=== PATIENT | female | born 1960 | race Caucasian/White ===

== ENCOUNTER 2020-12-31 08:00 | Outpatient (CLI) | payer BC ==
--- NOTE | 2020-12-31 08:51 | XRAY Report ---
PROCEDURE: Hip w/Pelvis 2-3V RT INDICATIONS: RIGHT HIP JOINT PAIN TECHNIQUE: AP pelvis with lateral view(s) of the right hip(s). COMPARISON: None. FINDINGS: Bones: No fractures or dislocations. Pelvic ring appears intact. No suspicious bony lesions. Ther e are screws fixating the right iliac wing. The right hip has severe degenerative changes with loss o f the joint space, osteophytes, subchondral sclerosis. The left hip has mild degenerative changes. Soft tissues: The visualized bowel gas pattern is normal. No suspicious soft tissue calcifications. IMPRESSION: Severe osteoarthritis of the right hip. Reviewed by: Mauricio Molina on 12/31/2020 8:49 AM PDT Approved by: Mauricio Molina on 12/31/2020 8:49 AM PDT Station ID: [id number]
== END 2020-12-31 23:59 | disposition home or self-care (01) ==
LOC: DI.N 08:00
PROVIDERS: ATTEND Physician Assistant
DX: M25.551 Pain in right hip (principal); M16.11 Unilateral primary osteoarthritis, right hip

== ENCOUNTER 2021-01-14 13:27 | Outpatient (CLI) | payer BC ==
[2021-01-14] MEDS ORDERED: ROPIVACAINE 0.5% PF 20 ML AMPULE ONE (13:31)
[2021-01-14] MEDS ORDERED: TRIAMCINOLONE 40 MG/ML VIAL ONE (13:31)
[2021-01-14] MEDS ORDERED: BUFFERED LIDOCAINE 10 ML SYRINGE ONE (13:41)
[2021-01-14] MEDS ORDERED: BUFFERED LIDOCAINE 10 ML SYRINGE IU ONE (15:00)
[2021-01-14] MEDS ORDERED: iohexoL-240 10 ML VIAL IVP ONE (15:01)
[2021-01-14] MEDS ORDERED: TRIAMCINOLONE 40 MG/ML VIAL IM ONE (15:03)
[2021-01-14] MEDS ORDERED: ROPIVACAINE 0.5% PF 20 ML AMPULE IU ONE (16:00)
--- NOTE | 2021-01-14 16:40 | XRAY Report ---
PROCEDURE: Inj/Aspiration Major Joint INDICATIONS: ARTHRITIS RIGHT HIP CONTRAST: CONTRAST: omnipaque FLUORO TIME: FLUORO TIME: 13 sec and NUMBER IMAGES: 1 TECHNIQUE: The indications, alternatives, benefits, risks, and complications of the procedure were explained to the patient. Written informed consent was obtained and placed in the chart. The patient was placed in an appropriate position on the fluoroscopy table, and a site was chosen for percutaneous access un kuldeep fluoroscopic guidance. Local anesthetic was administered using a 1% lidocaine solution. A hypod ermic or spinal needle was then used to access the symptomatic joint. Intra-articular location of th e needle tip was confirmed by injecting a small amount of contrast, followed by steroid administratio n. The needle was then withdrawn, and a bandage applied to the puncture site. FINDINGS: Joint injected: Right hip joint. Medications injected: 1 mL of 40 mg/mL Kenalog and 3 mL 0.5% Ropivacaine mixture. Complications: None. IMPRESSION: Successful fluoroscopically guided administration of steroid and anaesthetic solution into the right hip joint. Reviewed by: Joseph Card MD on 01/14/2021 4:39 PM PDT Approved by: Joseph Card MD on 01/14/2021 4:39 PM PDT Station ID: [id number]
== END 2021-01-14 13:28 | disposition home or self-care (01) ==
LOC: DI 13:27
PROVIDERS: ATTEND Physician Assistant
DX: M13.851 Other specified arthritis, right hip (principal)
CPT/HCPCS: 20610; 77002; Q9966

== ENCOUNTER 2021-06-18 08:50 | Outpatient (CLI) | payer BC ==
--- NOTE | 2021-06-18 11:40 | CT Report ---
PROCEDURE: LOWER EXTREMITY WO - RT INDICATIONS: OSTEOARTHRITIS OF RIGHT HIP TECHNIQUE: Noncontrast 3-mm axial sections acquired from the distal tibial shaft to the talar dome, with coronal and sagittal reformats. For radiation dose reduction, the following was used: automated exposure c ontrol, adjustment of mA and/or kV according to patient size. COMPARISON: Right hip radiographs 12/31/2020 FINDINGS: Image quality: Excellent. Bones: Postsurgical changes are seen in the right iliac bone and right acetabulum with multiple meta llic screws. The hardware appears to be intact without signs of loosening. Severe joint space narrowi ng is seen in the superior and anterosuperior aspect of the right hip with subchondral cystic changes , subchondral sclerosis, and marginal osteophyte formation. Mild degenerative changes are seen in the left hip, right greater than left sacroiliac joints, and the pubic symphysis. Degenerative changes a lso noted in the included lower lumbar spine. Soft tissues: There is a small right hip effusion. Multiple ossified intra-articular loose bodies ar e seen, largest of which is located anterior to the femoral head measuring 18 x 15 x 9 mm. Fluid valencia ection extending along the anterior acetabulum into the pelvis may represent an iliopsoas bursal effu cisco or dissecting ganglion cysts. The musculature surrounding the hips is normal in bulk. The articu lar cartilages, labrum, ligaments, and tendons are not well evaluated with standard CT. A few diverti cula are seen in the colon. IMPRESSION: 1.Postsurgical changes in the right acetabulum and right iliac bone with intact hardware. 2.Severe degenerative changes in the right hip with full-thickness joint space narrowing, subchondral cystic changes, subchondral sclerosis, and marginal osteophyte formation. 3.Small right hip effusion with several ossified loose bodies. An iliopsoas bursal fluid collection o r ganglion cyst anterior to the right hip is seen extending superiorly into the pelvis. 4.Mild degenerative changes in the left hip, sacroiliac joints, pubic symphysis. Degenerative changes also noted in the included lower lumbar spine. Reviewed by: Sina Fountain MD on 06/18/2021 11:38 AM PDT Approved by: Sina Fountain MD on 06/18/2021 11:38 AM PDT Station ID: [id number]
== END 2021-06-18 08:51 | disposition home or self-care (01) ==
LOC: DI 08:50
PROVIDERS: ATTEND Orthopaedic Surgery
DX: M16.0 Bilateral primary osteoarthritis of hip (principal); M25.451 Effusion, right hip; M24.051 Loose body in right hip; M47.816 Spondylosis without myelopathy or radiculopathy, lumbar region

== ENCOUNTER 2021-06-19 16:46 | Outpatient (CLI) | payer BC ==
[2021-06-19 17:02] LABS: BASOPHILS % (AUTO) 0.3 %; EOSINOPHILS # (AUTO) 0.3 10^3/uL (0.0-0.7); EOSINOPHILS % (AUTO) 3.7 %; HCT - HEMATOCRIT 38.8 % (37.0-47.0); HGB - HEMOGLOBIN 13.2 g/dL (12.0-16.0); LYMPHOCYTES # (AUTO) 2.6 10^3/uL (1.5-3.5); LYMPHOCYTES % (AUTO) 36.3 %; MEAN CORPUSCULAR HEMOGLOBIN 32.2 pg (27.0-31.0); MEAN CORPUSCULAR VOLUME 94.6 fL (81.0-99.0); MEAN PLATELET VOLUME 8.9 fL (7.9-10.8); MONOCYTES # (AUTO) 0.5 10^3/uL (0.0-1.0); MONOCYTES % (AUTO) 7.4 %; NEUTROPHILS # (AUTO) 3.8 10^3/uL (1.5-6.6); PLT - PLATELET COUNT 316 10^3/uL (130-450); RED CELL DISTRIBUTION WIDTH 12.2 % (12.0-15.0); WHITE BLOOD COUNT 7.3 x10^3/uL (4.8-10.8)
[2021-06-19 17:13] LABS: ALBUMIN 4.7 g/dL (3.2-5.5); ALBUMIN/GLOBULIN RATIO 1.5 (1.0-2.2); BILIRUBIN,TOTAL 0.4 mg/dL (0.2-1.0); CREATININE 0.7 mg/dL (0.4-1.0); TOTAL PROTEIN 7.8 g/dL (6.7-8.2)
== END 2021-06-19 16:47 | disposition home or self-care (01) ==
LOC: LAB 16:46
PROVIDERS: ATTEND Registered Nurse
DX: E53.8 Deficiency of other specified B group vitamins (principal); Z13.0 Encounter for screening for diseases of the blood and blood-forming organs and certain disorders involving the immune mechanism; Z13.9 Encounter for screening, unspecified
CPT/HCPCS: 36415; 80053; 85025

== ENCOUNTER 2021-07-17 06:10 | Day surgery (SDC) | payer BC ==
[2021-07-17] MEDS ORDERED: ACETAMINOPHEN 500 MG TABLET PO ONE (06:28)
[2021-07-17] MEDS ORDERED: CELECOXIB 100 MG CAPSULE PO ONE (06:28)
[2021-07-17] MEDS ORDERED: LACTATED RINGERS 1,000 ML IV ONE ×2 (06:38→11:26)
--- NOTE | 2021-07-17 07:08 | ANESTHESIA ---
Pre-Anesthesia VS, & Labs - Diagnosis right hip osteo arthritis due to hip dysplasia - Procedure right hip arthroplasty Vital Signs: Temp Pulse Resp BP Pulse Ox 36.2 C L 72 16 143/93 H 94 07/17/21 06:39 07/17/21 06:39 07/17/21 06:39 07/17/21 06:39 07/17/21 06:39 Height: 5 ft 5 in Weight (kg): 96.6 kg Body Mass Index: 35.4 BMI Classification: Obese - NPO >8 hours - Is Patient ?: No Home Medications and Allergies Home Medications: Ambulatory Orders Aspirin [Aspirin EC] 81 mg PO DAILY 07/09/21 Cholecalciferol [Vitamin D3] 25 mcg PO DAILY 07/09/21 Lactobacillus Combination No.4 [Probiotic] 1 each PO DAILY 07/09/21 Levocetirizine Dihydrochloride [Xyzal] 5 mg PO DAILY 07/09/21 Levothyroxine [Synthroid] 25 mcg PO QDAC 07/09/21 Sertraline [Zoloft] 25 mg PO DAILY 07/09/21 Tramadol HCl 100 mg PO Q4HR PRN 07/09/21 Triamcinolone Acetonide [Nasacort] 2 spr NS DAILY 07/09/21 Aspirin [Aspirin EC] 81 mg PO DAILY 07/09/21 Cholecalciferol [Vitamin D3] 25 mcg PO DAILY 07/09/21 Lactobacillus Combination No.4 [Probiotic] 1 each PO DAILY 07/09/21 Levocetirizine Dihydrochloride [Xyzal] 5 mg PO DAILY 07/09/21 Levothyroxine [Synthroid] 25 mcg PO QDAC 07/09/21 Sertraline [Zoloft] 25 mg PO DAILY 07/09/21 Tramadol HCl 100 mg PO Q4HR PRN 07/09/21 Triamcinolone Acetonide [Nasacort] 2 spr NS DAILY 07/09/21 Allergies/Adverse Reactions: Allergies Allergy/AdvReac Type Severity Reaction Status Date / Time cefaclor [From Ceclor] Allergy Rash Verified 07/17/21 06:16 cephalexin [From Keflex] Allergy Rash Verified 07/17/21 06:16 ciprofloxacin [From Cipro] Allergy Rash Verified 07/17/21 06:16 erythromycin base Allergy Rash Verified 07/17/21 06:16 Penicillins Allergy Anaphylaxis Verified 07/17/21 06:16 sulfamethoxazole Allergy Rash Verified 07/17/21 06:16 [From ] trimethoprim [From ] Allergy Rash Verified 07/17/21 06:16 Anes History & Medical History - Anesthetic History Anesthesia Complications: reports: No previous complications - Medical History Cardiovascular: reports: None Pulmonary: reports: None Gastrointestinal: reports: GERD Urinary: reports: None Neuro: reports: None Musculoskeletal: reports: Osteoarthritis Endocrine/Autoimmune: reports: HyPOthyroidism Blood Disorders: reports: None Skin: reports: None Smoking Status: Never smoker Psychosocial: reports: Depression, Alcohol (wine 2-3 times per week) History of Cancer?: No - Surgical History Eyes Ears Nose Throat (EENT): reports: Tonsil/Adenoidectomy Orthopedic: reports: Other Exam General: Alert, Oriented x3, Cooperative, No acute distress Dental: WNL Mouth Openin Fingerbreadth Mallampati classification: II Thyromental Distance: 4-6 cm Mental/Cognitive Status: Alert/Oriented X3, Normal for patient Plan Anesthesia Type: Spinal, Fascia Iliaca Block (right side) Consent for Procedure(s) Verified and Reviewed: Yes Code Status: Attempt Resuscitation ASA classification: 2-Mild systemic disease Is this case an emergency?: No
[2021-07-17] MEDS ORDERED: BUPIVACAINE 0.25% PF 30 ML VIAL ONE (07:20)
[2021-07-17] MEDS ORDERED: VANCOMYCIN 1 GM VIAL ONE (07:20)
[2021-07-17] MEDS ORDERED: CEFAZOLIN SODIUM IN 0.9 % NACL 2 GM/50 ML BAG IV ONE (07:25)
[2021-07-17] MEDS ORDERED: MIDAZOLAM 2 MG/2 ML VIAL ONE ×2 (07:34→08:50)
[2021-07-17] MEDS ORDERED: BUPIVACAINE 0.5% PF 10 ML VIAL ONE (07:35)
[2021-07-17] MEDS ORDERED: PROPOFOL 500 MG/50 ML 500 MG/50 ML VIAL ONE ×3 (07:35→09:55)
[2021-07-17] MEDS ORDERED: fentaNYL 100 MCG/2 ML VIAL ONE (07:35)
[2021-07-17] MEDS ORDERED: DEXAMETHASONE 10 MG/ML VIAL ONE (07:35)
[2021-07-17] MEDS ORDERED: PHENYLEPHRINE 10 MG/ML VIAL ONE (07:35)
[2021-07-17] MEDS ORDERED: TRANEXAMIC ACID 1,000 MG/10 ML VIAL ONE (07:36)
[2021-07-17] MEDS ORDERED: ATROPINE ABBOJECT 1 MG/10 ML SYRINGE IVP PRN (09:09)
[2021-07-17] MEDS ORDERED: HYDROmorphone 0.5 MG/0.5 ML SYRINGE IVP PRN (09:09)
[2021-07-17] MEDS ORDERED: fentaNYL 100 MCG/2 ML VIAL IVP PRN ×2 (09:09→11:21)
[2021-07-17] MEDS ORDERED: ONDANSETRON 4 MG/2 ML VIAL IVP PRN ×2 (09:09→11:21)
[2021-07-17] MEDS ORDERED: NALOXONE 0.4 MG/ML VIAL IVP PRN (09:09)
[2021-07-17] MEDS ORDERED: MORPHINE 2 MG/ML CARPUJECT IVP PRN (09:09)
[2021-07-17] MEDS ORDERED: VANCOMYCIN 1 GM VIAL MC ONE (09:49)
[2021-07-17] MEDS ORDERED: ROPIVACAINE 0.5% PF 20 ML AMPULE ONE (09:49)
[2021-07-17] MEDS ORDERED: SODIUM CHLORIDE 0.9% 10 ML VIAL IVP ONE (09:50)
[2021-07-17] MEDS ORDERED: LACTATED RINGERS 1,000 ML IV SCH (10:00)
[2021-07-17] MEDS ORDERED: BUPIVACAINE 0.25% PF 30 ML VIAL SUBQ ONE ×2 (10:12)
--- NOTE | 2021-07-17 10:49 | OPERATIVE REPORT ---
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, previous he Procedure Performed: Right total hip replacement using [employer] press-fit total hip system: 54 mm R3 3-hole acetabular component, 42 mm inner diameter Oxinium dual mobility acetabular liner, single 6.5 mm x 30 mm acetabular screw, size 5 anthology high offset femoral component with +4 head and 28 x 42 mm dual mobility insert Post Op Diagnosis: Same as preoperative diagnosis - Procedure Note Primary Surgeon: Higinio Kuo MD Secondary Surgeon: Cyndee Bhakta PAC, Joaquin Noriega PAC Anesthesia Provider: Carmen Barrow CRNA Anesthesia Technique: Regional block, Spinal Estimated Blood Loss (mL): 700 Indications: 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 She had congenital hip dysplasia and underwent a right hip periacetabular osteotomy. She is done relatively well following her acetabular osteotomy but has developed progressive pain with weightbearing activities. She has pain with nearly all weightbearing activities that limits her ability to work, do activities of daily living and also to do activities that enhance her quality of life that she enjoys. She walks with a limp. She has less discomfort when sitting or at night. Her hip motion was reduced and very painful. Her gait was abnormal. Her x-rays showed advanced osteoarthritis of the right hip with periarticular osteophytes, acetabular protrusio, healed acetabular osteotomy with previous internal fixation. There is no joint space present to the right hip. She did have shortening of the right leg as well. Findings: At the time of surgery, there was complete loss of articular cartilage to the acetabulum. The acetabulum appeared to be well-healed from previous osteotomy of right hip. There was some scarring about the right hip and relatively large osteophytes about the acetabulum. There are also osteophytes about the femoral head which was deformed and had nearly complete loss of articular cartilage as well. There was eburnation of joint surface was present. Complications: None - Other Other Information/Narrative: After satisfactory spinal anesthesia had been achieved, the patient was placed in a lateral decubitus position with the right hip facing superiorly. She was secured in the lateral decubitus position using a pegboard with 2 post securing the torso and 2 posts securing the pelvis. The right hip and right lower extremity were prepped and draped in a sterile manner in the usual fashion. A timeout procedure was performed by the entire operating room team and all were in agreement. A longitudinal incision was made about the lateral right hip beginning at the vastus lateralis ridge of the proximal femur and extending it proximally approximately 3 fingerbreadths above the trochanter. The subcutaneous tissue and fascia adarsh were split in line with the incision. The anterior one third of the gluteus medius was incised at the tendinous junction. The gluteus medius was retracted medially. The hip capsule was exposed and was split in a T-shaped fashion. Part of the anterior hip capsule was excised. The femoral head was dislocated with flexion, adduction and external rotation. An osteotomy was done to the femoral neck using a osteotomy guide. Retractors were placed behind the femoral neck to protect the soft tissues from the oscillating saw. The proximal femur was retracted. 2 acetabular retractors were placed one anteriorly directly against bone to reduce any soft tissue impingement to femoral nerve. The second retractor was placed more posteriorly directly against bone and preventing any impingement against sciatic nerve. The acetabulum was prepared with a large curette. Medialization of the acetabulum was not performed. widening was done up to a 53 mm reamer the final reamers were placed in approximately 25 degrees anteversion and 40 degrees of abduction. A trial acetabular component was inserted, 53 mm and this fit well. A permanent 54 mm R3 acetabular 3-hole component was then impacted in 40 degrees of abduction and approximately 25 degrees of anteversion. This had good fixation to push pull and rotation. A single6.5 X 30 mm superior acetabular screw was inserted. The stability of the acetabular cup was very good. A Dual mobility acetabular liner was inserted into the cup. The femoral canal was opened with a box osteotome,Lateral canal reamer, starting reamer and then a short broach. Broaching was carried out to a #5. Calcar reaming was performed. Good fit and stability to the #5 stem was achieved. Trial reduction was performed. Hip motion was very good and the hip was stable to dislocation maneuvers. The trial components were removed. The #5 Accolade femoral stem was impacted and fully seated. The femoral head was impacted on the femoral trunnion. There was good stability to push pull and rotation. A 42 mm dual mobility +4 head was impacted on the trunnion. The hip was reduced, had good leg length tension and good stability with dislocation maneuvers. 3-minute lavage with dilute Betadine was performed. Vancomycin 2 g powder was inserted prior to the deep closure. The hip abductors were repaired at the tendinous junction with Arthrex fiber tack suture anchor. The fascia adarsh was closed with #1 Vicryl. The subcutaneous tissue was closed with 2-0 Vicryl. The skin was closed with a 3-0 Monocryl subcuticular closure and Dermabond. He tolerated the procedure well. A physician medical practice assistant was utilized during the procedure to provide retraction and protection of neurovascular structures as well as to facilitate dislocation and reduction of the hip joint.The patient was stable throughout the procedure but did have increased blood loss due to the complexity of the anatomy From previous hip dysplasia and previous osteotomy of acetabulumwhich made the procedure slightly longer and required more soft tissue dissection around the acetabulum.
[2021-07-17] MEDS ORDERED: PROPOFOL 200 MG/20 ML VIAL IVP ONE (11:07)
[2021-07-17] MEDS ORDERED: SODIUM CHLORIDE FLUSH 0.9% 10 ML SYRINGE IVP PRN (11:21)
[2021-07-17] MEDS ORDERED: DOCUSATE SODIUM 100 MG CAPSULE PO PRN (11:21)
--- NOTE | 2021-07-17 11:43 | ANESTHESIA POST OP EVALUATION ---
Anesthesia Post Eval - Post Anesthesia Eval Vitals: Last Vital Signs Temp 36 C L 07/17/21 11:29 Pulse 62 07/17/21 11:29 Resp 17 07/17/21 11:29 BP 107/73 07/17/21 11:29 Pulse Ox 100 07/17/21 11:29 CV Function Including HR & BP: Stable Pain Control: Satisfactory Nausea & Vomiting: Negative Mental Status: Baseline Respiratory Status: Airway Patent Hydration Status: Satisfactory Anesthesia Complications: None
[2021-07-17] MEDS ORDERED: NS W/20 MEQ KCL 1,000 ML IV SCH (13:00)
[2021-07-17] MEDS ORDERED: TRIAMCINOLONE ACETONIDE NS SCH (13:25)
--- NOTE | 2021-07-17 13:26 | XRAY Report ---
PROCEDURE: Pelvis 1 View INDICATIONS: POST OP TECHNIQUE: 3 view(s) of the pelvis acquired. COMPARISON: 12/31/2020 FINDINGS: Bones: Right total hip arthroplasty is in good position. Right iliac fixation screws also noted in go od position without evidence of hardware failure or loosening. Soft tissues: Visualized bowel gas pattern is normal. No suspicious soft tissue calcifications. IMPRESSION: Right total hip prosthesis in good position. Right iliac wing instrumentation, stable Reviewed by: Michael Youssef MD on 07/17/2021 12:25 PM AKDT Approved by: Michael Youssef MD on 07/17/2021 12:25 PM AKDT Station ID: [id number]
--- NOTE | 2021-07-17 13:28 | CONSULTATION NOTE ---
Referring Provider Name of Referring Provider:: Dr. Kuo Consult Date: 07/17/21 Chief Complaint - Chief Complaint Chief Complaint: right total hip replacement History of Present Illness - Admitted From Admitted From:: Medical floor - History Obtained From Records Reviewed: [facility] and surgeon's notes History obtained from: pt Exam Limitations: no - History of Present Illness HPI Comment/Other: This is a 61-years old female with a past medical history significantly of hypothyroidism, allergy, depression, Who had right total hip replacement on today. Surgeon Consult medical team for medical management. pt Is s/p of right total hip replacement on today. Patient report he feels comfortable, pain is at control, she has no complaints at this point. pt report Physical therapist will see patient later on this afternoon. History - Past Medical History Cardiovascular: reports: None Respiratory: reports: None Neuro: reports: None Endocrine/Autoimmune: reports: HyPOthyroidism GI: reports: GERD : reports: None HEENT: reports: Chronic vision loss Psych: reports: Depression, Anxiety Musculoskeletal: reports: Osteoarthritis Derm: reports: None MRSA Hx?: No - Past Surgical History Ortho: reports: Other HEENT: reports: Tonsil/Adenoidectomy Meds/Allgy - Home Medications Home Medications: Ambulatory Orders Medication Instructions Recorded Confirmed Aspirin [Aspirin EC] 81 mg PO DAILY 07/09/21 07/09/21 Cholecalciferol [Vitamin D3] 25 mcg PO DAILY 07/09/21 07/09/21 Lactobacillus Combination No.4 1 each PO DAILY 07/09/21 07/09/21 [Probiotic] Levocetirizine Dihydrochloride 5 mg PO DAILY 07/09/21 07/09/21 [Xyzal] Levothyroxine [Synthroid] 25 mcg PO QDAC 07/09/21 07/09/21 Sertraline [Zoloft] 25 mg PO DAILY 07/09/21 07/09/21 Tramadol HCl 100 mg PO Q4HR PRN 07/09/21 07/09/21 Triamcinolone Acetonide [Nasacort] 2 spr NS DAILY 07/09/21 07/09/21 - Allergies Allergies/Adverse Reactions: Allergies Allergy/AdvReac Type Severity Reaction Status Date / Time cefaclor [From Ceclor] Allergy Rash Verified 07/17/21 06:16 cephalexin [From Keflex] Allergy Rash Verified 07/17/21 06:16 ciprofloxacin [From Cipro] Allergy Rash Verified 07/17/21 06:16 erythromycin base Allergy Rash Verified 07/17/21 06:16 Penicillins Allergy Anaphylaxis Verified 07/17/21 06:16 sulfamethoxazole Allergy Rash Verified 07/17/21 06:16 [From Septra] trimethoprim [From Septra] Allergy Rash Verified 07/17/21 06:16 Review of Systems - Constitutional Constitutional: denies: Weakness - Eyes Eyes: denies: Pain - Ears, Nose & Throat Ears, Nose & Throat: denies: Ear pain - Cardiovascular Cariovascular: denies: Chest pain, Exertional dyspnea, Decr. exercise tolerance - Respiratory Respiratory: denies: Cough, Sputum production, SOB at rest, SOB with exertion - Gastrointestinal Gastrointestinal: denies: Abdominal pain, Nausea, Vomiting - Genitourinary Genitourinary: denies: Dysuria - Musculoskeletal Musculoskeletal: denies: Muscle pain, Muscle aches - Neurological Neurological: denies: General weakness, Focal weakness, Headache, Dizziness, Sei zures, Incoordination, Slurred speech Exam - Vital Signs Vital Signs: Vital Signs x48h Temp Pulse Pulse Resp BP BP Pulse Ox 07/17/21 12:51 36.4 C L 65 16 112/67 97 07/17/21 11:51 36.3 C L 66 16 101/74 95 07/17/21 11:50 36.0 C L 90 16 109/66 100 07/17/21 11:45 59 L 12 108/71 100 07/17/21 11:40 36.0 C L 58 L 10 L 102/79 99 07/17/21 11:29 36 C L 62 17 107/73 100 07/17/21 11:24 36.0 C L 60 12 104/61 100 07/17/21 06:39 36.2 C L 72 16 143/93 H 94 - Physical Exam General Appearance: positive: No acute distress, Alert. negative: Lethargic Eyes Bilateral: positive: Normal inspection, No lid inflammation ENT: positive: ENT inspection nml, No signs of dehydration. negative: Purulent nasal drainage Neck: positive: Nml inspection, Trachea midline. negative: Tracheal deviation Respiratory: positive: Chest non-tender, No respiratory distress. negative: Wheezes Cardiovascular: positive: Regular rate & rhythm. negative: Tachycardia, Bradycardia, Systolic murmur Peripheral Pulses: positive: 2+ Abdomen: positive: Non-tender, Nml bowel sounds, No distention. negative: Tenderness Back: positive: Nml inspection Skin: positive: Color nml, Warm, Dry. negative: Cyanosis Extremities: positive: Non-tender, Nml appearance, Other (pt report she slight numbness on right toes. pt is just s/p from right hip replacement) Neurologic/Psychiatric: positive: Oriented x3, Sensation nml, Mood/affect nml. negative: Weakness, Facial droop, Slurred/abnml speech Conclusion/Plan - Problem List (1) Hypothyroidism Conclusion/Plan: Patient's TSH is normal, we will resume patient home Synthroid. (2) Status post right hip replacement Conclusion/Plan: Patient is status post right hip placement on today. DVT prophylaxis per surgeon, gently IVF, Continue pain control, continue PT and OT. Patient is planning discharge on tomorrow by surgeon. slight elevated WBC is likely reactive. (3) Depression Conclusion/Plan: Patient has a history of depression, will resume home Zoloft (4) Allergy Conclusion/Plan: Patient has history of allergies, will resume home medications nasacort and levocetirizine - Lab Results Fish Bones: 07/17/21 13:54 07/17/21 13:54
[2021-07-17] MEDS: ACETAMINOPHEN 500 MG TABLET PO SCH ×3 (13:34→23:35)
[2021-07-17 14:00] LABS: BASOPHILS % (AUTO) 0.3 %; EOSINOPHILS % (AUTO) 0.1 %; HCT - HEMATOCRIT 34.6 % (37.0-47.0); HGB - HEMOGLOBIN 11.4 g/dL (12.0-16.0); LYMPHOCYTES # (AUTO) 0.8 10^3/uL (1.5-3.5); LYMPHOCYTES % (AUTO) 6.9 %; MEAN CORPUSCULAR HEMOGLOBIN 31.5 pg (27.0-31.0); MEAN CORPUSCULAR HGB CONC 32.9 g/dL (32.0-36.0); MEAN CORPUSCULAR VOLUME 95.6 fL (81.0-99.0); MEAN PLATELET VOLUME 8.8 fL (7.9-10.8); MONOCYTES # (AUTO) 0.3 10^3/uL (0.0-1.0); MONOCYTES % (AUTO) 2.8 %; NEUTROPHILS # (AUTO) 10.9 10^3/uL (1.5-6.6); NEUTROPHILS % (AUTO) 89.6 %; PLT - PLATELET COUNT 298 10^3/uL (130-450); RED BLOOD COUNT 3.62 10^6/uL (4.20-5.40); RED CELL DISTRIBUTION WIDTH 12.2 % (12.0-15.0); WHITE BLOOD COUNT 12.2 x10^3/uL (4.8-10.8)
[2021-07-17 14:10] LABS: CREATININE 0.6 mg/dL (0.4-1.0); POTASSIUM 4.1 mmol/L (3.5-5.0)
[2021-07-17] MEDS: oxyCODONE 5 MG TABLET PO PRN ×2 (15:41→20:56)
[2021-07-17] MEDS: PANTOPRAZOLE 40 MG TABLET PO SCH (15:42)
[2021-07-17] MEDS: NS W/20 MEQ KCL 1,000 ML IV SCH (15:43)
[2021-07-17] MEDS: ceFAZolin 2 GM in SODIUM CHLORIDE 0.9% 100ML 100 ML IV SCH ×2 (16:09→23:35)
[2021-07-17] MEDS: KETOROLAC 15 MG/ML VIAL IVP PRN ×2 (18:05→23:35)
[2021-07-17] MEDS: HYDROmorphone 0.5 MG/0.5 ML SYRINGE IVP PRN ×2 (18:06→21:31)
[2021-07-17] MEDS: SODIUM CHLORIDE FLUSH 0.9% 10 ML SYRINGE IVP SCH ×2 (18:08→21:31)
[2021-07-17 19:53] LABS: HCT - HEMATOCRIT 29.6 % (37.0-47.0); HGB - HEMOGLOBIN 9.9 g/dL (12.0-16.0)
[2021-07-17] MEDS: ASPIRIN EC 81 MG TABLET PO SCH (20:56)
[2021-07-17] MEDS: ethyl alcohoL 62% SWAB AMPULE NAS SCH (20:56)
[2021-07-17] MEDS ORDERED: CELECOXIB 100 MG CAPSULE PO SCH (21:00)
[2021-07-18] MEDS: HYDROmorphone 0.5 MG/0.5 ML SYRINGE IVP PRN (02:07)
[2021-07-18] MEDS: SODIUM CHLORIDE FLUSH 0.9% 10 ML SYRINGE IVP SCH ×2 (02:07→08:30)
[2021-07-18] MEDS: NS W/20 MEQ KCL 1,000 ML IV SCH (02:08)
[2021-07-18 04:09] LABS: BASOPHILS % (AUTO) 0.1 %; HCT - HEMATOCRIT 28.8 % (37.0-47.0); HGB - HEMOGLOBIN 9.4 g/dL (12.0-16.0); LYMPHOCYTES # (AUTO) 1.3 10^3/uL (1.5-3.5); LYMPHOCYTES % (AUTO) 14.3 %; MEAN CORPUSCULAR HEMOGLOBIN 31.1 pg (27.0-31.0); MEAN CORPUSCULAR HGB CONC 32.6 g/dL (32.0-36.0); MEAN CORPUSCULAR VOLUME 95.4 fL (81.0-99.0); MEAN PLATELET VOLUME 8.6 fL (7.9-10.8); MONOCYTES # (AUTO) 1.1 10^3/uL (0.0-1.0); MONOCYTES % (AUTO) 11.8 %; NEUTROPHILS # (AUTO) 6.7 10^3/uL (1.5-6.6); NEUTROPHILS % (AUTO) 73.4 %; PLT - PLATELET COUNT 265 10^3/uL (130-450); RED BLOOD COUNT 3.02 10^6/uL (4.20-5.40); RED CELL DISTRIBUTION WIDTH 12.2 % (12.0-15.0); WHITE BLOOD COUNT 9.1 x10^3/uL (4.8-10.8)
[2021-07-18 04:18] LABS: CALCIUM 8.6 mg/dL (8.5-10.3); CREATININE 0.6 mg/dL (0.4-1.0); POTASSIUM 4.2 mmol/L (3.5-5.0)
[2021-07-18] MEDS: PANTOPRAZOLE 40 MG TABLET PO SCH (06:06)
[2021-07-18] MEDS: ACETAMINOPHEN 500 MG TABLET PO SCH ×2 (06:06→11:33)
[2021-07-18] MEDS ORDERED: LEVOTHYROXINE 25 MCG TABLET PO SCH (07:00)
--- NOTE | 2021-07-18 07:53 | PROVIDER PROGRESS NOTE ---
Subjective - General Procedure Date: 07/17/21 Post Op Days: 1 Procedure Performed: Right total hip replacement - Review of Systems Wound/Incisions: positive: Dressing dry and intact General: positive: No symptoms - Other Other Information/Narrative: Patient is in good spirits this morning. Her pain is controlled. She denies chest pain, shortness of breath, nausea or vomiting this morning. She did have some nausea last evening. Objective - Patient Data Vital Signs: Vital Signs x48h Temp Pulse Resp BP Pulse Ox 07/18/21 04:00 36.6 C 75 16 96/49 L 96 07/18/21 00:00 36.1 C L 73 18 108/52 L 99 Weight: Weight 07/16/21 07/17/21 07/18/21 23:59 23:59 23:59 Weight (kg) 96.6 kg Intake & Output: Intake and Output Totals x24h 07/16/21 07/17/21 07/18/21 23:59 23:59 23:59 Intake Total 782.602 692.067 Output Total 2875 1400 Balance -2092.398 -707.933 - Lab Results Lab Results: 07/18/21 04:01 07/18/21 04:01 Other Lab Results: Lab Results x24hrs 07/18/21 07/18/21 07/17/21 Range/Units 04:01 04:01 19:47 WBC 9.1 (4.8-10.8) x10^3/uL RBC 3.02 L (4.20-5.40) 10^6/uL Hgb 9.4 L 9.9 L (12.0-16.0) g/dL Hct 28.8 L 29.6 L (37.0-47.0) % MCV 95.4 (81.0-99.0) fL MCH 31.1 H (27.0-31.0) pg MCHC 32.6 (32.0-36.0) g/dL RDW 12.2 (12.0-15.0) % Plt Count 265 (130-450) 10^3/uL MPV 8.6 (7.9-10.8) fL Neut # (Auto) 6.7 H (1.5-6.6) 10^3/uL Lymph # (Auto) 1.3 L (1.5-3.5) 10^3/uL Mcintosh # (Auto) 1.1 H (0.0-1.0) 10^3/uL Eos # (Auto) 0.0 (0.0-0.7) 10^3/uL Baso # (Auto) 0.0 (0.0-0.1) 10^3/uL Absolute Nucleated RBC 0.00 x10^3/uL Nucleated RBC % 0.0 /100WBC Sodium 136 (135-145) mmol/L Potassium 4.2 (3.5-5.0) mmol/L Chloride 104 (101-111) mmol/L Carbon Dioxide 24 (21-32) mmol/L Anion Gap 8.0 (6-13) BUN 14 (6-20) mg/dL Creatinine 0.6 (0.4-1.0) mg/dL Estimated GFR (MDRD) 102 (>89) Glucose 124 H (70-100) mg/dL Calcium 8.6 (8.5-10.3) mg/dL TSH (0.34-5.60) uIU/mL 07/17/21 07/17/21 07/17/21 Range/Units 13:54 13:54 13:54 WBC 12.2 H (4.8-10.8) x10^3/uL RBC 3.62 L (4.20-5.40) 10^6/uL Hgb 11.4 L (12.0-16.0) g/dL Hct 34.6 L (37.0-47.0) % MCV 95.6 (81.0-99.0) fL MCH 31.5 H (27.0-31.0) pg MCHC 32.9 (32.0-36.0) g/dL RDW 12.2 (12.0-15.0) % Plt Count 298 (130-450) 10^3/uL MPV 8.8 (7.9-10.8) fL Neut # (Auto) 10.9 H (1.5-6.6) 10^3/uL Lymph # (Auto) 0.8 L (1.5-3.5) 10^3/uL Mcintosh # (Auto) 0.3 (0.0-1.0) 10^3/uL Eos # (Auto) 0.0 (0.0-0.7) 10^3/uL Baso # (Auto) 0.0 (0.0-0.1) 10^3/uL Absolute Nucleated RBC 0.00 x10^3/uL Nucleated RBC % 0.0 /100WBC Sodium 137 (135-145) mmol/L Potassium 4.1 (3.5-5.0) mmol/L Chloride 100 L (101-111) mmol/L Carbon Dioxide 26 (21-32) mmol/L Anion Gap 11.0 (6-13) BUN 20 (6-20) mg/dL Creatinine 0.6 (0.4-1.0) mg/dL Estimated GFR (MDRD) 102 (>89) Glucose 126 H (70-100) mg/dL Calcium 9.0 (8.5-10.3) mg/dL TSH 0.80 (0.34-5.60) uIU/mL - Current Medications Current Medications: Current Medications Generic Name Dose Route Start Last Admin Trade Name Leonardoq PRN Reason Stop Dose Admin Acetaminophen 1,000 mg 07/17/21 12:00 07/18/21 06:06 Acetaminophen 500 Mg Tablet PO 1,000 mg Q6HR LIZZ Administration Alcohol 1 amp 07/17/21 21:00 07/17/21 20:56 Ethyl Alcohol 62% Swab Ampule NEO 1 amp BID LIZZ Administration Aspirin 81 mg 07/17/21 21:00 07/17/21 20:56 Aspirin Ec 81 Mg Tablet PO 81 mg BID LIZZ Administration Fentanyl 25 mcg 07/17/21 11:21 07/17/21 17:07 Fentanyl 100 Mcg/2 Ml Vial IVP 25 mcg Q2HR PRN Administration PAIN Hydromorphone HCl 0.5 mg 07/17/21 17:49 07/18/21 02:07 Hydromorphone 0.5 Mg/0.5 Ml Syringe IVP 0.5 mg Q4H PRN Administration PAIN Potassium Chloride/Sodium Chloride 1,000 mls @ 83.3 mls/hr 07/17/21 14:16 07/18/21 02:08 Normal Saline 0.9% W/20 Meq Kcl IV 07/18/21 14:16 83 mls/hr .Q12H1M LIZZ Administration Ketorolac Tromethamine 15 mg 07/17/21 17:49 07/17/21 23:35 Ketorolac 15 Mg/Ml Vial IVP 07/22/21 17:48 15 mg Q6HR PRN Administration PAIN Levothyroxine Sodium 25 mcg 07/18/21 07:00 07/18/21 06:10 Levothyroxine 25 Mcg Tablet PO 25 mcg QDAC LIZZ Administration Ondansetron HCl 4 mg 07/17/21 11:21 07/17/21 15:14 Ondansetron 4 Mg/2 Ml Vial IVP 4 mg Q6HR PRN Administration Nausea / Vomiting Oxycodone HCl 5 mg 07/17/21 11:21 07/17/21 20:56 Oxycodone 5 Mg Tablet PO 5 mg Q6HR PRN Administration PAIN Pantoprazole Sodium 40 mg 07/17/21 14:00 07/18/21 06:06 Pantoprazole 40 Mg Tablet PO 40 mg QDAC LIZZ Administration Sodium Chloride 10 ml 07/17/21 17:00 07/18/21 02:07 Sodium Chloride Flush 0.9% 10 Ml Syringe IVP 10 ml 0100,0900,1700 LIZZ Administration - Physical Exam Wound/Incisions: positive: Dressing dry and intact General Appearance: positive: No acute distress Neurologic/Psychiatric: positive: Oriented x3, Motor nml, Sensation nml Impression/Plan - Problem List Problem List: He is postop day 1, right total hip arthroplasty She is doing well and should be safe for discharge after physical therapy sessions. She has follow-up appointment on next Thursday, discharge pain medications have been done before surgery, continue with baby aspirin 81 mg twice daily for deep venous thrombosis prophylaxis, ambulation with walker weightbearing as tolerated right leg. She should avoid crossing her legs. She may shower with dressing in place. If she develops signs of bleeding, fever, chills, chest pain, shortness of breath, nausea or vomiting she should contact our office.
[2021-07-18] MEDS: ASPIRIN EC 81 MG TABLET PO SCH (08:28)
[2021-07-18] MEDS: ethyl alcohoL 62% SWAB AMPULE NAS SCH (08:30)
[2021-07-18] MEDS ORDERED: LORATADINE 10 MG TABLET PO SCH (09:00)
[2021-07-18] MEDS ORDERED: FLUTICASONE NASAL SPRAY NAS SCH (09:00)
[2021-07-18] MEDS ORDERED: LACTOBACILLUS RHAMNOSUS GG CAPSULE PO SCH (09:00)
[2021-07-18] MEDS ORDERED: SERTRALINE 25 MG TABLET PO SCH (09:00)
[2021-07-18] MEDS ORDERED: CHOLECALCIFEROL 25 MCG TABLET PO SCH (09:00)
[2021-07-18] MEDS ORDERED: SODIUM CHLORIDE 0.9% 1,000 ML IV SCH (10:00)
[2021-07-18] MEDS: KETOROLAC 15 MG/ML VIAL IVP PRN (11:33)
[2021-07-18 12:05] VITALS: BP 108/57
[2021-07-18] MEDS: oxyCODONE 5 MG TABLET PO PRN (13:40)
== END 2021-07-18 14:36 | disposition home or self-care (01) ==
LOC: SDS 06:10 → MS3 12:13 → SDS 07-18 14:36
PROVIDERS: ATTEND Orthopaedic Surgery
DX: M16.31 Unilateral osteoarthritis resulting from hip dysplasia, right hip (principal); E66.9 Obesity, unspecified; Z68.35 Body mass index [BMI] 35.0-35.9, adult; E03.9 Hypothyroidism, unspecified; F32.A Depression, unspecified; F41.9 Anxiety disorder, unspecified; Z88.0 Allergy status to penicillin; Z88.8 Allergy status to other drugs, medicaments and biological substances
CPT/HCPCS: 27130; 36415; 72170; 80048; 84443; 85014; 85018; 85025; 97116; 97161; 97165; 97530; A9270; C1713; J0690; J1170; J3370; J7120

== ENCOUNTER 2021-08-29 08:27 | Outpatient (CLI) | payer BC ==
--- NOTE | 2021-08-29 14:19 | XRAY Report ---
PROCEDURE: Hip 2 View RT INDICATIONS: RIGHT ROGELIO TECHNIQUE: 2 views of the hip were acquired. COMPARISON: Single view the pelvis dated 07/17/2021 FINDINGS: Bones: Right hip arthroplasty and ORIF of the right iliac is unchanged from the prior study. No suspi cious bony lesions. Soft tissues: No suspicious soft tissue calcifications or masses. IMPRESSION: Stable postoperative change. Reviewed by: Carlotta Villalobos MD on 08/29/2021 2:18 PM PDT Approved by: Carlotta Villalobos MD on 08/29/2021 2:18 PM PDT Station ID: [id number]
== END 2021-08-29 23:59 | disposition home or self-care (01) ==
LOC: DI.WOS 08:27
PROVIDERS: ATTEND Orthopaedic Surgery
DX: Z96.641 Presence of right artificial hip joint (principal)

== ENCOUNTER 2022-05-28 13:05 | Outpatient (CLI) | payer BC ==
--- NOTE | 2022-05-29 09:10 | Mammography Report ---
BILATERAL DIGITAL SCREENING MAMMOGRAM 3D/2D: 05/28/2022 CLINICAL: Routine screening. Comparison is made to exam dated: 02/28/2020 mammogram - [facility]. Both breasts are almost entirely fatty (category a/<25% glandular tissue). There are benign masses in both breasts. No significant masses, calcifications, or other findings are seen in either breast. There has been no significant interval change. IMPRESSION: BENIGN There is no mammographic evidence of malignancy. A 1 year screening mammogram is recommended. Based on the Tyrer Cuzick model (a risk assessment model) the patients lifetime risk is 5.5% and her 10 year risk is 2.3%. According to the ACR, ACS, and NCCN guidelines, an annual breast MRI exam cheng g with mammogram is recommended if the patients lifetime risk is 20% or greater. This exam was interpreted at Station ID: [id number]. NOTE: For mammograms, a report in lay terms will be sent to the patient. Approximately 15% of breast malignancies will not be visualized mammographically. In the management of a palpable breast mass, a negative mammogram must not discourage biopsy of a clinically suspicious lesion. Electronically Signed By: Ced travis/corbin:05/28/2022 15:17:57 letter sent: No_Letter ACR BI-RADS Category 2: Benign Finding(s) 3342F PARENCHYMAL PATTERN: (F) - The breast(s) demonstrate(s) diffuse fatty replacement. BI-RADS CATEGORY: (2) - 2 RECOMMENDATION: (ANNUAL) - Recommend routine annual screening mammography. [id number] 1 year screening LATERALITY: (B)
== END 2022-05-28 13:06 | disposition home or self-care (01) ==
LOC: DI.S 13:05
PROVIDERS: ATTEND Registered Nurse
DX: Z12.31 Encounter for screening mammogram for malignant neoplasm of breast (principal)

== ENCOUNTER 2023-04-08 08:00 | Outpatient (CLI) | payer BC ==
--- NOTE | 2023-04-08 19:06 | XRAY Report ---
PROCEDURE: Chest 2V INDICATIONS: SHORTNESS OF BREATH TECHNIQUE: 2 views of the chest were acquired. COMPARISON: None. FINDINGS: Surgical changes and devices: None. Lungs and pleura: No pleural effusions or pneumothorax. Lungs are clear. Moderate to large hiatal hernia. Mediastinum: Mediastinal contours appear normal. Heart size is normal. Bones and chest wall: No suspicious bony lesions. Overlying soft tissues appear unremarkable. IMPRESSION: No acute cardiopulmonary process. Moderate to large hiatal hernia. Reviewed by: Sina Fountain MD on 04/08/2023 7:04 PM PST Approved by: Sina Fountain MD on 04/08/2023 7:04 PM [facility] Station ID: [id number]
== END 2023-04-08 23:59 | disposition home or self-care (01) ==
LOC: DI.S 08:00
PROVIDERS: ATTEND Physician Assistant Medical
DX: R06.02 Shortness of breath (principal); K44.9 Diaphragmatic hernia without obstruction or gangrene

== ENCOUNTER 2023-04-10 08:01 | Outpatient (CLI) | payer BC ==
[2023-04-10 14:22] LABS: BASOPHILS % (AUTO) 0.8 %; EOSINOPHILS # (AUTO) 0.3 10^3/uL (0.0-0.7); EOSINOPHILS % (AUTO) 6.1 %; HCT - HEMATOCRIT 27.3 % (37.0-47.0); HGB - HEMOGLOBIN 7.8 g/dL (12.0-16.0); LYMPHOCYTES % (AUTO) 38.2 %; MEAN CORPUSCULAR HEMOGLOBIN 23.6 pg (27.0-31.0); MEAN CORPUSCULAR HGB CONC 28.6 g/dL (32.0-36.0); MEAN CORPUSCULAR VOLUME 82.7 fL (81.0-99.0); MEAN PLATELET VOLUME 8.8 fL (7.9-10.8); MONOCYTES # (AUTO) 0.6 10^3/uL (0.0-1.0); MONOCYTES % (AUTO) 11.4 %; NEUTROPHILS # (AUTO) 2.2 10^3/uL (1.5-6.6); NEUTROPHILS % (AUTO) 43.3 %; PLT - PLATELET COUNT 464 10^3/uL (130-450); RED CELL DISTRIBUTION WIDTH 15.5 % (12.0-15.0); SLIDE REVIEW? Indicated; WHITE BLOOD COUNT 5.1 x10^3/uL (4.8-10.8)
[2023-04-10 14:37] LABS: PLATELET ESTIMATE, MANUAL INCREASED (>450,000) (NORMAL); PLATELET MORPHOLOGY NORMAL APPEARANCE (NORMAL); RBC MORPHOLOGY (MULTIPLE) 2+ HYPOCHROMASIA (NORMAL)
[2023-04-10 16:07] LABS: ALBUMIN/GLOBULIN RATIO 1.5 (1.0-2.2); ALKALINE PHOSPHATASE 71 IU/L (42-121); ALT ALANINE AMINOTRANSFERASE 15 IU/L (10-60); AST ASPARTATE AMINOTRANSFERASE 15 IU/L (10-42); BILIRUBIN,TOTAL 0.2 mg/dL (0.2-1.0); BUN - BLOOD UREA NITROGEN 19 mg/dL (6-20); CALCIUM 9.3 mg/dL (8.5-10.3); CARBON DIOXIDE - CO2 27 mmol/L (21-32); CHLORIDE 107 mmol/L (101-111); CHOL/HDL RATIO 3.6 (<4.4); CHOLESTEROL 193 mg/dL; CREATININE 0.7 mg/dL (0.6-1.3); GFR - MDRD 85 (>89); GLUCOSE 93 mg/dL (74-104); HDL CHOLESTEROL 54 mg/dL; LDL CHOLESTEROL,CALCULATED 122 mg/dL; LDL/HDL RATIO 2.3 (<4.4); POTASSIUM 4.1 mmol/L (3.5-4.5); SODIUM 140 mmol/L (135-145); TOTAL PROTEIN 6.7 g/dL (6.4-8.9); TRIGLYCERIDES 83 mg/dL (48-352); VLDL CHOLESTEROL 17 mg/dL
== END 2023-04-10 08:02 | disposition home or self-care (01) ==
LOC: LAB.S 08:01
PROVIDERS: ATTEND Registered Nurse
DX: Z13.220 Encounter for screening for lipoid disorders (principal); Z79.899 Other long term (current) drug therapy; Z13.29 Encounter for screening for other suspected endocrine disorder
CPT/HCPCS: 36415; 80053; 80061; 83721; 84443; 85025

== ENCOUNTER 2023-04-11 11:32 | Emergency (ER) | payer BC ==
[2023-04-11 12:01] VITALS: O2SAT 99
[2023-04-11 13:34] LABS: BASOPHILS % (AUTO) 0.4 %; EOSINOPHILS # (AUTO) 0.2 10^3/uL (0.0-0.7); EOSINOPHILS % (AUTO) 3.5 %; HCT - HEMATOCRIT 28.3 % (37.0-47.0); HGB - HEMOGLOBIN 8.2 g/dL (12.0-16.0); LYMPHOCYTES # (AUTO) 1.9 10^3/uL (1.5-3.5); LYMPHOCYTES % (AUTO) 37.1 %; MEAN CORPUSCULAR HEMOGLOBIN 23.6 pg (27.0-31.0); MEAN CORPUSCULAR VOLUME 81.6 fL (81.0-99.0); MEAN PLATELET VOLUME 8.1 fL (7.9-10.8); MONOCYTES # (AUTO) 0.4 10^3/uL (0.0-1.0); MONOCYTES % (AUTO) 8.6 %; NEUTROPHILS # (AUTO) 2.6 10^3/uL (1.5-6.6); NEUTROPHILS % (AUTO) 50.2 %; PLT - PLATELET COUNT 436 10^3/uL (130-450); RED BLOOD COUNT 3.47 10^6/uL (4.20-5.40); RED CELL DISTRIBUTION WIDTH 15.2 % (12.0-15.0); WHITE BLOOD COUNT 5.1 x10^3/uL (4.8-10.8)
--- NOTE | 2023-04-11 13:46 | XRAY Report ---
PROCEDURE: Chest 1V INDICATIONS: chest pain TECHNIQUE: One view of the chest was acquired. COMPARISON: 04/08/2023 FINDINGS: Surgical changes and devices: None. Lungs and pleura: No pleural effusions or pneumothorax. Lungs are clear. Mediastinum: Mediastinal contours appear normal. Heart size is normal. A moderate to large hiatal hernia is again seen. Bones and chest wall: No suspicious bony lesions. Overlying soft tissues appear unremarkable. IMPRESSION: No acute cardiopulmonary process. Additional findings: Moderate to large hiatal hernia Reviewed by: Arjun Dutton MD on 04/11/2023 12:44 PM [facility] Approved by: Arjun Dutton MD on 04/11/2023 12:44 PM [facility] Station ID: [id number]
[2023-04-11 13:53] LABS: ALBUMIN 4.3 g/dL (3.2-5.5); ALBUMIN/GLOBULIN RATIO 1.4 (1.0-2.2); BILIRUBIN,TOTAL 0.2 mg/dL (0.2-1.0); CALCIUM 9.4 mg/dL (8.5-10.3); CREATININE 0.7 mg/dL (0.6-1.3); POTASSIUM 3.9 mmol/L (3.5-4.5); TOTAL PROTEIN 7.3 g/dL (6.4-8.9)
[2023-04-11 14:00] LABS: TROPONIN I HIGH SENSITIVITY 4.4 ng/L (2.3-14.8)
[2023-04-11 14:10] LABS: THYROID STIMULATING HORMONE 2.68 uIU/mL (0.34-5.60)
--- NOTE | 2023-04-11 16:24 | ED Physician Documentation ---
History of Present Illness - Stated complaint Stated Complaint: SENT BY [facility] - Chief complaint Chief Complaint: Resp - History obtained from History obtained from: Patient - Additonal information Additional information: Patient is a 63-year-old female presenting for evaluation of shortness of breath that she has been noting during exertion for the past several months. Patient works at the [employer] and states that she notices this when walking from employee parking to the hospital. She denies fever, cough or congestion. She denies chest pain. She reports feeling slightly worse with her shortness of breath this past week. She went to her PCP who directed her to the walk-in clinic and had outpatient labs and testing done on Thursday. She looked at her old labs today and noted that her hemoglobin was low in the 7 range and then was notified by the walk-in clinic that she should go to the emergency department for evaluation. She has noted darker colored stools but states they have not been black or with alice blood. She takes aspirin daily for history of varicose veins. She has never had a colonoscopy but has had 2 Cologuard test that have been unremarkable.She denies recent travel or immobilization. No history of PE or DVT. No abdominal symptoms. No nausea, vomiting. States stools today looked normal colored. Review of Systems Constitutional: denies: Fever Cardiac: denies: Chest pain / pressure Respiratory: reports: Dyspnea. denies: Cough GI: denies: Abdominal Pain, Vomiting Musculoskeletal: denies: Back pain, Extremity swelling Neurologic: denies: Headache PD PAST MEDICAL HISTORY - Past Medical History Past Medical History: Yes Cardiovascular: None Respiratory: None Neuro: None Endocrine/Autoimmune: HyPOthyroidism GI: GERD : None HEENT: Chronic vision loss Psych: Depression, Anxiety Musculoskeletal: Osteoarthritis Derm: None - Past Surgical History Past Surgical History: Yes Ortho: Other HEENT: Tonsil/Adenoidectomy - Present Medications Home Medications: Ambulatory Orders Medication Instructions Recorded Confirmed Aspirin [Aspirin EC] 81 mg PO DAILY 07/09/21 07/09/21 Cholecalciferol [Vitamin D3] 25 mcg PO DAILY 07/09/21 07/09/21 Lactobacillus Combination No.4 1 each PO DAILY 07/09/21 07/09/21 [Probiotic] Levocetirizine Dihydrochloride 5 mg PO DAILY 07/09/21 07/09/21 [Xyzal] Levothyroxine [Synthroid] 25 mcg PO QDAC 07/09/21 07/09/21 Sertraline [Zoloft] 25 mg PO DAILY 07/09/21 07/09/21 Tramadol HCl 100 mg PO Q4HR PRN 07/09/21 07/09/21 Triamcinolone Acetonide [Nasacort] 2 spr NS DAILY 07/09/21 07/09/21 - Allergies Allergies/Adverse Reactions: Allergies Allergy/AdvReac Type Severity Reaction Status Date / Time cefaclor [From Ceclor] Allergy Rash Verified 04/11/23 11:53 cephalexin [From Keflex] Allergy Rash Verified 04/11/23 11:53 ciprofloxacin [From Cipro] Allergy Rash Verified 04/11/23 11:53 erythromycin base Allergy Rash Verified 04/11/23 11:53 Penicillins Allergy Anaphylaxis Verified 04/11/23 11:53 sulfamethoxazole Allergy Rash Verified 04/11/23 11:53 [From Septra] trimethoprim [From Septra] Allergy Rash Verified 04/11/23 11:53 - Social History Does the pt smoke?: No Smoking Status: Never smoker Does the pt drink ETOH?: Yes Does the pt have substance abuse?: No - Immunizations Immunizations are current?: Yes PD ED PE NORMAL - General General: Alert and oriented X 3, No acute distress, Well developed/nourished - HEENT HEENT: Atraumatic, Moist mucous membranes, Pharynx benign - Neck Neck: Supple, no meningeal sign - Cardiac Cardiac: RRR, Strong equal pulses - Respiratory Respiratory: No respiratory distress, Clear bilaterally - Abdomen Abdomen: Normal bowel sounds, Soft, Non tender, Non distended - Rectal Rectal: Other (Chaperoned by Trina, no masses, normal colored stool, sent for Hemoccult testing) - Derm Derm: Warm and dry - Extremities Extremities: No edema, No calf tenderness / cord - Neuro Neuro: Normal speech Results - Vitals Vitals: Vital Signs - 24 hr 04/11/23 04/11/23 04/11/23 11:46 15:53 16:46 Temperature 36.0 C L Heart Rate 80 64 68 Respiratory 16 18 17 Rate Blood Pressure 139/72 H 126/76 139/75 H O2 Saturation 99 96 99 Oxygen O2 Source Room air - EKG (time done) 1456 EKG releavant findings:: EKG personally interpreted by author of this note. Relevant findings are: Rate 68, normal sinus rhythm, no STEMI, no ST depressions - Labs Labs: Microbiology 04/11/23 15:10 Occult Blood - Final Stool Laboratory Tests 04/11/23 04/11/23 04/11/23 13:29 13:29 13:29 WBC 5.1 RBC 3.47 L Hgb 8.2 L Hct 28.3 L MCV 81.6 MCH 23.6 L MCHC 29.0 L RDW 15.2 H Plt Count 436 MPV 8.1 Neut # (Auto) 2.6 Lymph # (Auto) 1.9 Scurry # (Auto) 0.4 Eos # (Auto) 0.2 Baso # (Auto) 0.0 Absolute Nucleated RBC 0.00 Nucleated RBC % 0.0 D-Dimer Sodium 139 Potassium 3.9 Chloride 104 Carbon Dioxide 28 Anion Gap 7.0 BUN 18 Creatinine 0.7 Estimated GFR (MDRD) 85 L Glucose 116 H Calcium 9.4 Magnesium 2.0 Total Bilirubin 0.2 AST 15 ALT 17 Alkaline Phosphatase 73 Troponin I High Sens 4.4 B-Natriuretic Peptide Total Protein 7.3 Albumin 4.3 Globulin 3.0 Albumin/Globulin Ratio 1.4 Lipase 35 TSH 2.68 04/11/23 04/11/23 13:29 15:36 WBC RBC Hgb Hct MCV MCH MCHC RDW Plt Count MPV Neut # (Auto) Lymph # (Auto) Scurry # (Auto) Eos # (Auto) Baso # (Auto) Absolute Nucleated RBC Nucleated RBC % D-Dimer 206.0 Sodium Potassium Chloride Carbon Dioxide Anion Gap BUN Creatinine Estimated GFR (MDRD) Glucose Calcium Magnesium Total Bilirubin AST ALT Alkaline Phosphatase Troponin I High Sens B-Natriuretic Peptide 72 Total Protein Albumin Globulin Albumin/Globulin Ratio Lipase TSH PD Medical Decision Making - ED course Complexity details: reviewed results, re-evaluated patient, d/w patient ED course: Patient is a 63-year-old female presenting for evaluation of shortness of breath that has been ongoing for the past months that she has been noting with exertion. Here vital signs are stable. EKG is nonischemic. No chest pain. Labs including CBC, chemistries, troponin, BNP were obtained and reviewed. She is anemic with a hemoglobin of 8.2. On labs earlier this week her hemoglobin was 7.8 so today it is slightly improved. On review of past labs that she was noted to be anemic in July 2021 with hemoglobins in the 9 range. Although she reports having dark-colored stool she says they have not been black or bloody and Hemoccult testing today is negative but with again normal colored stools on exam. Therefore I do not think she is having an acute GI bleed warranting an emergent colonoscopy. Do not think she needs an emergent blood transfusion given her hemoglobin above 8 today. Her high-sensitivity troponin is negative for so does not appear to have cardiac ischemia as the cause of her symptoms. I also obtained a D-dimer which was in the normal range and she does not have any known risk factors for PE or DVT. I did review her chest x-ray which shows a hiatal hernia and reviewed this with the patient. Patient understands the need for close follow-up with both a PCP as well as general surgery in regards to her hiatal hernia as well as her anemia as she may need a colonoscopy. Patient symptoms have been ongoing for some time and at this time I do not see signs of an emergent condition warranting admission to the hospital but again patient is aware she needs further testing. Patient counseled on concerning symptoms to return for. Departure - Departure Disposition: Home, Self Care Clinical Impression: SOB (shortness of breath), Anemia, Hiatal hernia Condition: Stable Instructions: ED Dyspnea Shortness of Breath Follow-Up: [facility] [Provider Group] Comments: Mary Jane your testing today shows that you are anemic. You are also noted to be anemic in 2021 and your hemoglobin today is slightly better than it was a few days ago with your outpatient labs. On your exam today I also do not see signs of any rectal bleeding and your stool was negative for microscopic blood. However I do think you need more testing to determine the cause for your anemia as well as your shortness of breath. Your chest x-ray does show that you have a hiatal hernia. Although you have had the Cologuard test in the past you may also need a colonoscopy. I would recommend close follow-up with one of our general surgeons to discuss both your hiatal hernia as well as your anemia. You should also have close follow-up with your primary care provider regarding your anemia and your shortness of breath. You may need further testing such as an echocardiogram or a stress test to evaluate your heart. At this time your cardiac marker is negative and again I do not see signs of a heart attack. Please reach out to your primary care doctor on Thursday for close follow-up. If at anytime you feel that you are having worsening symptoms or certainly any new symptoms such as chest pain then please return to the emergency department. Forms: PCP List Discharge Date/Time: 04/11/23 16:46
[2023-04-11 16:49] VITALS: BP 139/75
== END 2023-04-11 16:46 | disposition home or self-care (01) ==
LOC: ED 11:32
DX: K44.9 Diaphragmatic hernia without obstruction or gangrene (principal); D64.9 Anemia, unspecified; R06.02 Shortness of breath
CPT/HCPCS: 36415; 80053; 82272; 83690; 83735; 83880; 84443; 84484; 85025; 85379; 99283; 99284

== ENCOUNTER 2023-04-16 12:35 | Outpatient (CLI) | payer BC ==
[2023-04-16 12:58] LABS: ABSOLUTE RETICS # AUTO 0.076 10^6/uL (0.020-0.110); RED BLOOD COUNT 3.73 10^6/uL (4.20-5.40); RETICULOCYTE COUNT % (AUTO) 2.03 % (0.5-2.3)
[2023-04-16 13:36] LABS: FERRITIN 3.7 ng/mL (11.0-306.8)
[2023-04-16 17:00] LABS: BILIRUBIN,URINE NEGATIVE (NEGATIVE); GLUCOSE, URINE (UA) NEGATIVE (NEGATIVE); KETONES,URINE (UA) NEGATIVE (NEGATIVE); LEUKOCYTE ESTERASE, URINE SMALL (NEGATIVE); NITRITE,URINE NEGATIVE (NEGATIVE); OCCULT BLOOD,URINE NEGATIVE (NEGATIVE); PH,URINE 5.5 PH (5.0-7.5); PROTEIN,URINE NEGATIVE (NEGATIVE); UROBILINOGEN,URINE 0.2 (NORMAL) E.U./dL (NORMAL)
[2023-04-16 17:48] LABS: BACTERIA,URINE Many /HPF (None Seen); CLARITY,URINE CLEAR (CLEAR); RBC,URINE 0-5 /HPF (0-5); SQUAMOUS EPITHELIAL CELL,UR RARE Squamous (<= Few)
== END 2023-04-16 12:36 | disposition home or self-care (01) ==
LOC: LAB 12:35
PROVIDERS: ATTEND Internal Medicine
DX: D64.9 Anemia, unspecified (principal)
CPT/HCPCS: 36415; 81001; 82607; 82728; 82746; 83540; 84466; 85045; 87086

== ENCOUNTER 2023-06-08 16:20 | Outpatient (CLI) | payer BC ==
[2023-06-08 16:33] LABS: ABSOLUTE RETICS # AUTO 0.047 10^6/uL (0.020-0.110); BASOPHILS % (AUTO) 0.2 %; EOSINOPHILS # (AUTO) 0.2 10^3/uL (0.0-0.7); EOSINOPHILS % (AUTO) 3.1 %; HCT - HEMATOCRIT 40.8 % (37.0-47.0); HGB - HEMOGLOBIN 12.5 g/dL (12.0-16.0); LYMPHOCYTES # (AUTO) 2.6 10^3/uL (1.5-3.5); LYMPHOCYTES % (AUTO) 39.8 %; MEAN CORPUSCULAR HEMOGLOBIN 25.8 pg (27.0-31.0); MEAN CORPUSCULAR HGB CONC 30.6 g/dL (32.0-36.0); MEAN CORPUSCULAR VOLUME 84.3 fL (81.0-99.0); MEAN PLATELET VOLUME 8.8 fL (7.9-10.8); MONOCYTES # (AUTO) 0.7 10^3/uL (0.0-1.0); MONOCYTES % (AUTO) 11.3 %; NEUTROPHILS % (AUTO) 45.4 %; PLT - PLATELET COUNT 342 10^3/uL (130-450); RED BLOOD COUNT 4.84 10^6/uL (4.20-5.40); RED CELL DISTRIBUTION WIDTH 22.5 % (12.0-15.0); RETICULOCYTE COUNT % (AUTO) 0.97 % (0.5-2.3); WHITE BLOOD COUNT 6.6 x10^3/uL (4.8-10.8)
[2023-06-08 16:36] LABS: SLIDE REVIEW? Indicated
[2023-06-08 17:54] LABS: PLATELET ESTIMATE, MANUAL NORMAL (130-450,000) (NORMAL); PLATELET MORPHOLOGY NORMAL APPEARANCE (NORMAL); RBC MORPHOLOGY (MULTIPLE) 2+ ANISOCYTOSIS (NORMAL)
[2023-06-08 17:57] LABS: FERRITIN 23.7 ng/mL (11.0-306.8)
== END 2023-06-08 16:21 | disposition home or self-care (01) ==
LOC: LAB 16:20
PROVIDERS: ATTEND Registered Nurse
DX: R42 Dizziness and giddiness (principal); D64.9 Anemia, unspecified; R06.09 Other forms of dyspnea
CPT/HCPCS: 36415; 82607; 82728; 83540; 84466; 85025; 85045

== ENCOUNTER 2023-07-06 09:48 | Outpatient (CLI) | payer BC ==
--- NOTE | 2023-07-07 10:20 | Mammography Report ---
BILATERAL DIGITAL SCREENING MAMMOGRAM 3D/2D: 07/06/2023 CLINICAL: Routine screening. Comparison is made to exams dated: 05/28/2022 mammogram - [facility] and 02/28/2020 mammogram - [facility]. Both breasts are heterogeneously dense, which may obscure small masses (category c / 51-75% glandular tissue). No significant masses, calcifications, or other findings are seen in either breast. There has been no significant interval change. IMPRESSION: NEGATIVE There is no mammographic evidence of malignancy. A 1 year screening mammogram is recommended. Based on the Tyrer Cuzick model (a risk assessment model) the patient's lifetime risk is 12.7% and he r 10 year risk is 5.5%. According to the ACR, ACS, and NCCN guidelines, an annual breast MRI exam abby ng with mammogram is recommended if the patient's lifetime risk is 20% or greater. This exam was interpreted at Station ID: [id number]. NOTE: For mammograms, a report in lay terms will be sent to the patient. Approximately 15% of breast malignancies will not be visualized mammographically. In the management of a palpable breast mass, a negative mammogram must not discourage biopsy of a clinically suspicious lesion. Electronically Signed By: Sina hunter/corbin:07/06/2023 16:52:49 ACR BI-RADS Category 1: Negative 3341F PARENCHYMAL PATTERN: (D) - The breast(s) demonstrate(s) heterogeneously dense fibroglandular magdaleno heart. BI-RADS CATEGORY: (1) - 1 RECOMMENDATION: (ANNUAL) - Recommend routine annual screening mammography. [id number] 1 year screening LATERALITY: (B)
== END 2023-07-06 09:49 | disposition home or self-care (01) ==
LOC: DI.S 09:48
PROVIDERS: ATTEND Registered Nurse
DX: Z12.31 Encounter for screening mammogram for malignant neoplasm of breast (principal); R92.333 Mammographic heterogeneous density, bilateral breasts

== ENCOUNTER 2023-08-27 11:54 | Day surgery (SDC) | payer BC ==
--- NOTE | 2023-08-27 06:48 | HISTORY & PHYSICAL EXAMINATION ---
PMH/PSH - Past Medical History Cardiovascular: positive: None Respiratory: positive: None Neuro: positive: None Endocrine/Autoimmune: positive: HyPOthyroidism GI: positive: GERD : positive: None HEENT: positive: Chronic vision loss Psych: positive: Depression, Anxiety Musculoskeletal: positive: Osteoarthritis Derm: positive: None MRSA Hx?: No - Past Surgical History Ortho: positive: Other HEENT: positive: Tonsil/Adenoidectomy Social & Family Hx - Social History Does the pt smoke?: No Smoking Status: Never smoker Does the pt drink ETOH?: Yes Does the pt have substance abuse?: No Meds/Allgy - Home Medications Home Medications: Ambulatory Orders Medication Instructions Recorded Confirmed Lactobacillus Combination No.4 1 each PO DAILY 07/09/21 08/26/23 [Probiotic] Levocetirizine Dihydrochloride 5 mg PO DAILY 07/09/21 08/26/23 [Xyzal] Levothyroxine [Synthroid] 25 mcg PO QDAC 07/09/21 08/26/23 Sertraline [Zoloft] 25 mg PO DAILY 07/09/21 08/26/23 Triamcinolone Acetonide [Nasacort] 2 spr NS DAILY 07/09/21 08/26/23 Ascorbic Acid/Ascorbate Sodium 1 tab PO DAILY 08/26/23 08/26/23 [Vitamin C 500 mg Tablet Chew] Cyanocobalamin (Vitamin B-12) 500 mcg PO DAILY 08/26/23 08/26/23 [Vitamin B12] Ferrous Bis-Glycinate Chelate 324 mg PO DAILY 08/26/23 08/26/23 [Iron Glycinate] - Allergies Allergies/Adverse Reactions: Allergies Allergy/AdvReac Type Severity Reaction Status Date / Time cefaclor [From Ceclor] Allergy Rash Verified 08/26/23 13:15 cephalexin [From Keflex] Allergy Rash Verified 08/26/23 13:15 ciprofloxacin [From Cipro] Allergy Rash Verified 08/26/23 13:15 erythromycin base Allergy Rash Verified 08/26/23 13:15 Penicillins Allergy Anaphylaxis Verified 08/26/23 13:15 sulfamethoxazole Allergy Rash Verified 08/26/23 13:15 [From Septra] trimethoprim [From Septra] Allergy Rash Verified 08/26/23 13:15 Impression/Plan - Problem List Problem List: Pre-op H&P I am asked to see Mary Jane for a screening colonoscopy examination. GI symptoms: None Family history of colon cancer/polyps: + Dad Personal history of colon polyps: No Last colonoscopy examination: Never Anticoagulant use: No The Past Family, Social and Personal History has been reviewed with the patient. ROS Denies fevers, chills, night sweats, shortness of breath, chest pain, change in the color of skin or urine, diarrhea, constipation, hematemesis, hematochezia, headache, visual changes, muscle aches. PE VSS, Afeb HEENT: Pupils equal, round and reactive to light, sclera anicteric, normal hearing, oral mucous membranes moist and without lesions NECK: Supple without lymphadenopathy, thyromegaly or carotid bruits LUNGS: Clear to auscultation without wheezing HEART: NSR without murmurs CHEST: Equal and symmetric expansion, no rib pain ABD: Soft, nontender, no hepatosplenomegaly, no hernias GROIN: No hernias or lymphadenopathy EXTREMITIES: Normal neuro and muscular exam SKIN: Anicteric Radiologic Studies N/A Assessment: Request for a screening colonoscopy examination. Plan: Screening colonoscopy under sedation through the Day Surgery admission protocol at [facility]. Consent: Mary Jane has been counseled for the procedure, it's indications, risks, benefits and expected outcome as well as alternative therapies. We specifically discussed risks associated with anesthesia and insertion of the endoscope into the large intestine which includes bleeding and injury to the colon which may require surgical intervention. Mary Jane understands, agrees, and consents to the proposed operative strategy and requests that we proceed with the procedure as outlined in our discussion. Kee Doe MD, FACS General Surgery Service
[2023-08-27] MEDS: LACTATED RINGERS 1,000 ML IV ONE (12:12)
--- NOTE | 2023-08-27 13:29 | ANESTHESIA ---
Pre-Anesthesia VS, & Labs - Diagnosis screening - Procedure colonoscopy Vital Signs: Temp Pulse Resp BP Pulse Ox O2 Flow Rate 36.5 C 62 15 146/90 H 99 08/27/23 12:37 08/27/23 12:37 08/27/23 12:37 08/27/23 12:37 08/27/23 12:37 Height: 5 ft 6 in Weight (kg): 94.3 kg Body Mass Index: 33.5 BMI Classification: Obese - NPO >8 hours - Is Patient ?: No Home Medications and Allergies Home Medications: Ambulatory Orders Ascorbic Acid/Ascorbate Sodium [Vitamin C 500 mg Tablet Chew] 1 tab PO DAILY 08/26/23 Cyanocobalamin (Vitamin B-12) [Vitamin B12] 500 mcg PO DAILY 08/26/23 Ferrous Bis-Glycinate Chelate [Iron Glycinate] 324 mg PO DAILY 08/26/23 Lactobacillus Combination No.4 [Probiotic] 1 each PO DAILY 07/09/21 Levocetirizine Dihydrochloride [Xyzal] 5 mg PO DAILY 07/09/21 Levothyroxine [Synthroid] 25 mcg PO QDAC 07/09/21 Sertraline [Zoloft] 25 mg PO DAILY 07/09/21 Triamcinolone Acetonide [Nasacort] 2 spr NS DAILY 07/09/21 Ascorbic Acid/Ascorbate Sodium [Vitamin C 500 mg Tablet Chew] 1 tab PO DAILY 08/26/23 Cyanocobalamin (Vitamin B-12) [Vitamin B12] 500 mcg PO DAILY 08/26/23 Ferrous Bis-Glycinate Chelate [Iron Glycinate] 324 mg PO DAILY 08/26/23 Allergies/Adverse Reactions: Allergies Allergy/AdvReac Type Severity Reaction Status Date / Time cefaclor [From Ceclor] Allergy Rash Verified 08/26/23 13:15 cephalexin [From Keflex] Allergy Rash Verified 08/26/23 13:15 ciprofloxacin [From Cipro] Allergy Rash Verified 08/26/23 13:15 erythromycin base Allergy Rash Verified 08/26/23 13:15 Penicillins Allergy Anaphylaxis Verified 08/26/23 13:15 sulfamethoxazole Allergy Rash Verified 08/26/23 13:15 [From Septra] trimethoprim [From Septra] Allergy Rash Verified 08/26/23 13:15 Anes History & Medical History - Anesthetic History Anesthesia Complications: reports: No previous complications Family history of Anesthesia Complications: Denies Family history of Malignant Hyperthermia: Denies - Medical History Cardiovascular: reports: None Pulmonary: reports: None Gastrointestinal: reports: GERD Urinary: reports: None Neuro: reports: None Musculoskeletal: reports: Osteoarthritis Endocrine/Autoimmune: reports: HyPOthyroidism Blood Disorders: reports: None Skin: reports: None Smoking Status: Never smoker Psychosocial: reports: No issues indicated History of Cancer?: No - Surgical History Eyes Ears Nose Throat (EENT): reports: Tonsil/Adenoidectomy Orthopedic: reports: Other Exam General: Alert, Oriented x3, Cooperative Dental: WNL Mouth Openin Fingerbreadth Neck Mobility: Normal Mallampati classification: II Thyromental Distance: 4-6 cm Respiratory: Lungs clear Cardiovascular: Regular rate Plan Anesthesia Type: General, Total IV Consent for Procedure(s) Verified and Reviewed: Yes Code Status: Attempt Resuscitation ASA classification: 2-Mild systemic disease Is this case an emergency?: No
[2023-08-27] MEDS ORDERED: PROPOFOL 500 MG/50 ML 500 MG/50 ML VIAL ONE (13:43)
[2023-08-27] MEDS ORDERED: LIDOCAINE-MPF 2% 5 ML VIAL ONE (14:40)
[2023-08-27] MEDS ORDERED: ONDANSETRON 4 MG/2 ML VIAL ONE (14:50)
[2023-08-27] MEDS: LACTATED RINGERS 700 ML IV ONE ×2 (15:01→15:21)
[2023-08-27 15:19] VITALS: BP 106/79; O2SAT 97
--- NOTE | 2023-08-27 17:08 | ANESTHESIA POST OP EVALUATION ---
Anesthesia Post Eval - Post Anesthesia Eval Vitals: Last Vital Signs Temp 36.2 C L 08/27/23 15:10 Pulse 68 08/27/23 15:10 Resp 14 08/27/23 15:10 BP 106/79 08/27/23 15:10 Pulse Ox 97 08/27/23 15:10 O2 Flow Rate CV Function Including HR & BP: Stable Pain Control: Satisfactory Nausea & Vomiting: Negative Mental Status: Baseline Respiratory Status: Airway Patent Hydration Status: Satisfactory Anesthesia Complications: None
== END 2023-08-27 11:55 | disposition home or self-care (01) ==
LOC: SDS 11:54
PROVIDERS: ATTEND Surgery
DX: Z12.11 Encounter for screening for malignant neoplasm of colon (principal); K57.30 Diverticulosis of large intestine without perforation or abscess without bleeding; E66.9 Obesity, unspecified; Z68.33 Body mass index [BMI] 33.0-33.9, adult
CPT/HCPCS: 45378; J7120

== ENCOUNTER 2023-10-20 11:59 | Outpatient (CLI) | payer BC ==
[2023-10-20 12:21] LABS: BASOPHILS % (AUTO) 0.6 %; EOSINOPHILS # (AUTO) 0.2 10^3/uL (0.0-0.7); EOSINOPHILS % (AUTO) 3.6 %; HCT - HEMATOCRIT 40.7 % (37.0-47.0); HGB - HEMOGLOBIN 13.3 g/dL (12.0-16.0); LYMPHOCYTES # (AUTO) 1.6 10^3/uL (1.5-3.5); LYMPHOCYTES % (AUTO) 34.3 %; MEAN CORPUSCULAR HEMOGLOBIN 30.4 pg (27.0-31.0); MEAN CORPUSCULAR HGB CONC 32.7 g/dL (32.0-36.0); MEAN CORPUSCULAR VOLUME 93.1 fL (81.0-99.0); MEAN PLATELET VOLUME 9.2 fL (7.9-10.8); MONOCYTES # (AUTO) 0.4 10^3/uL (0.0-1.0); MONOCYTES % (AUTO) 9.3 %; NEUTROPHILS # (AUTO) 2.5 10^3/uL (1.5-6.6); PLT - PLATELET COUNT 277 10^3/uL (130-450); RED BLOOD COUNT 4.37 10^6/uL (4.20-5.40); RED CELL DISTRIBUTION WIDTH 12.5 % (12.0-15.0); WHITE BLOOD COUNT 4.7 x10^3/uL (4.8-10.8)
[2023-10-20 12:38] LABS: CALCIUM 10.2 mg/dL (8.5-10.3); CREATININE 0.7 mg/dL (0.6-1.3); POTASSIUM 3.8 mmol/L (3.5-4.5)
== END 2023-10-20 12:00 | disposition home or self-care (01) ==
LOC: LAB 11:59
PROVIDERS: ATTEND Registered Nurse
DX: D64.9 Anemia, unspecified (principal)
CPT/HCPCS: 36415; 80048; 82728; 83540; 84466; 85025